=== PATIENT | male | born 2000 | race Asian ===

== ENCOUNTER 2022-01-27 10:04 | Emergency (ER) | payer OTHER ==
[~2022-01-27] VITALS: Ht 177.8 cm; Wt 74.8 kg
[2022-01-27 10:07] VITALS: BP_SYST 144
--- NOTE | 2022-01-27 10:07 | NUR ---
Patient to ER bed 8 to gown for evaluation. Side rails up.
--- NOTE | 2022-01-27 10:07 | NUR ---
Patient to ER bed 8 for evaluation. Side rails up. Report given to Charissa ALICEA.
--- NOTE | 2022-01-27 10:10 | NUR ---
PATIENT AAOX4 FROM HOME C/O SOB THAT STARTED ACOUPLE DAYS AGO. PATIENT STATED HE WENT OUT LAST NIGHT WITH GROUP OF FRIENDS AND SMOKED A "JOINT". STATED THIS HAS NEVER HAPPENED BEFORE. C/O FEVER HIGH 100. DENIES ANY CHEST PAIN. ON 96% RA.
--- NOTE | 2022-01-27 10:15 | NUR ---
Dr Francis to bedside to evaluate patient
--- NOTE | 2022-01-27 10:33 | NUR ---
PORTABLE XRAY AT BEDSIDE.
[2022-01-27] MEDS ORDERED: NAPR-1172 PO (10:39)
--- NOTE | 2022-01-27 10:58 | NUR ---
Patient given written and verbal discharge instructions and verbalizes understanding. DR. DARIN JONES MD discussed with patient the results and treatment provided. Patient in stable condition. ID arm band removed. Rx of NAPROXEN given. Patient educated on pain management and to follow up with PMD. Pain Scale 0/10 Opportunity for questions provided and answered. Medication side effect fact sheet provided.
== END 2022-01-27 10:58 | disposition home or self-care (01) ==
LOC: SED 10:04
DX: R09.1 Pleurisy (principal); Z79.899 Other long term (current) drug therapy
CPT/HCPCS: 71045; 99283

== ENCOUNTER 2022-01-30 10:27 | Emergency (ER) | payer OTHER ==
[~2022-01-30] VITALS: Ht 177.8 cm; Wt 74.8 kg
[~2022-01-30 10:27] MED LIST: NAPR-1172 PO
[2022-01-30 10:35] VITALS: BP_SYST 131
--- NOTE | 2022-01-30 10:35 | NUR ---
Pt to bed 3 for evaluation. Report given to NIXON Kirkpatrick who will assume care.
--- NOTE | 2022-01-30 10:47 | NUR ---
MD at bedside assessing patient
[2022-01-30] MEDS ORDERED: KETOROLAC TROMETHAMINE 60 MG/2 ML VIAL IM ONE (11:00)
--- NOTE | 2022-01-30 11:00 | NUR ---
EKG done at bedside MD to read results
--- NOTE | 2022-01-30 11:12 | NUR ---
Patient medicated per order, patient tolerated well.
--- NOTE | 2022-01-30 11:12 | NUR ---
senior geotechnical engineer at bedside
--- NOTE | 2022-01-30 11:20 | NUR ---
MD at bedside discussing plan of care
[2022-01-30] MEDS ORDERED: LIDO1ADH77 TD (11:27)
[2022-01-30 11:40] VITALS: BP_SYST 131
--- NOTE | 2022-01-30 11:40 | NUR ---
Patient given written and verbal discharge instructions and verbalizes understanding. ER MD discussed with patient the results and treatment provided. Patient in stable condition. ID arm band removed. IV catheter removed intact and dressing applied, no active bleeding. Rx of given. Patient educated on pain management and to follow up with PMD. Pain Scale 2/10 Opportunity for questions provided and answered. Medication side effect fact sheet provided.
== END 2022-01-30 11:40 | disposition home or self-care (01) ==
LOC: SED 10:27
DX: R07.89 Other chest pain (principal); Z79.899 Other long term (current) drug therapy
CPT/HCPCS: 71045; 96372; 99283; J1885

== ENCOUNTER 2022-02-24 12:53 | Emergency (ER) | payer OTHER ==
[~2022-02-24] VITALS: Ht 177.8 cm; Wt 74.8 kg
[~2022-02-24 12:53] MED LIST changes: +LIDO1ADH77 TD
[2022-02-24 12:55] VITALS: BP_SYST 120
--- NOTE | 2022-02-24 12:55 | NUR ---
Pt brought by self, A&Ox4 pt presents to ER with L chestwall pain, VSS, skin pink and warm, respirations even and unlabored, will cont to monitor
--- NOTE | 2022-02-24 13:30 | NUR ---
Dr Gao evaluating patient at bedside
[2022-02-24] MEDS ORDERED: LIDO1ADH77 TD (16:40)
[2022-02-24] MEDS ORDERED: IBUP-1969 PO (16:40)
[2022-02-24 16:50] VITALS: BP_SYST 120
--- NOTE | 2022-02-24 16:52 | NUR ---
Patient given written and verbal discharge instructions and verbalizes understanding. ER MD discussed with patient the results and treatment provided. Patient in stable condition. ID arm band removed. Rx of Lidocaine, Ibuprofen given. Patient educated on pain management and to follow up with PMD. Pain Scale 2/10. Opportunity for questions provided and answered. Medication side effect fact sheet provided.
== END 2022-02-24 16:52 | disposition home or self-care (01) ==
LOC: SED 12:53
DX: R07.89 Other chest pain (principal)
CPT/HCPCS: 93005; 99283